=== PATIENT | female | born 1935 | race Caucasian/White ===

== ENCOUNTER → 2016-10-24 | Outpatient (CLI) | payer OTHER ==
[~2016-10-24] MED LIST: CETI10TA84 PO; CHOL1CAP13 PO; ENOX80IN SQ; FERR325T51 PO; FURO-85 PO; LISI-725 PO; METO25TA56 PO; MULT1CAP7 PO; OXYC-57 PO; ROSU20TA PO; VITACAP26 PO
--- NOTE | 2016-10-24 12:21 | DIAGNOSTIC IMAGING REPORT ---
PET/CT CLINICAL HISTORY: Colorectal carcinoma. COMPARISON STUDY: PET/CT dated . CT scan of the chest, abdomen, and pelvis dated 10/04/2016 and 04/26/2016. TECHNIQUE: One hour following the IV administration of 15.99 mCi of F-18 FDG, PET/CT examination was performed from the orbital meatal line through the bony pelvis. Noncontrast CT is performed for the purposes of anatomic correlation and attenuation correction. Note that this does not reflect a diagnostic CT examination. Images were reviewed on a separate [employer] independent workstation. Fused images were obtained. Standard uptake values reported are maximum values within the region of interest expressed an gm/mL. FINDINGS: PET FINDINGS: Head and neck: There is expected physiologic activity within the visualized brain parenchyma at the skull base and the salivary glands. Thorax: Evaluation of the thorax demonstrates expected physiologic myocardial activity. There are 2 mildly enlarged mediastinal lymph nodes in the precarinal region seen on axial image #79. The largest node measures 1.7 x 1.3 cm. These are mildly FDG avid with a maximum SUV of 3.3. These are similar appearance to prior examinations. There is focal left hilar activity seen on image #86 with a maximum SUV of 3.8, and focal right hilar activity seen image #91 with a maximum SUV of 4.0. These likely correspond to mildly enlarged hilar lymph nodes seen on the recent contrast-enhanced CT scan. There are numerous (at least 10) subcentimeter pulmonary nodules. These are similar in size and distribution to the 10/04/[address] scan. The largest nodule measures 9 mm and is located in the right lower lobe seen on image #83. This may demonstrate faint FDG activity but these are too small for PET characterization. Abdomen and pelvis: There is expected activity within the liver, spleen, kidneys, renal collecting system, and bladder. Low-level bowel activity is likely within physical limits. Subtle foci of peritoneal nodularity are again suggested. This is not well visualized on the low-dose images. The CT findings from 10/04/2016 remain concerning for peritoneal metastatic disease. Unenhanced CT images: Visualized brain parenchyma is grossly unremarkable noting age-related involutional change. The bony orbits are grossly intact. Ocular lens implants are noted. The paranasal sinuses and the mastoid air cells are clear. The salivary and thyroid glands are normal as visualized. A left subclavian central venous infusion port is in place. No cervical lymphadenopathy is seen. There is atherosclerotic calcification of the thoracic aorta which is normal in caliber. The heart is enlarged and without pericardial effusion. The coronary arteries are densely calcified. No axillary adenopathy is seen. There is no airspace consolidation or pleural effusion. Dependent atelectasis is observed. See above under PET findings for assessment of pulmonary lesions. A 7 mm cyst is noted in the right lobe of liver. The unenhanced liver, gallbladder, spleen, adrenal glands, and pancreas otherwise grossly unremarkable. The kidneys to insert cortical atrophy and are without hydronephrosis. The abdominal aorta is normal in caliber noting mild to moderate atherosclerotic calcification. There are postoperative changes from sigmoid colon resection with left lower quadrant colostomy and rectal pouch formation. There is a small parastomal hernia. No bowel obstruction is identified. There is mild to moderate colonic fecal retention. No intraperitoneal free air or abdominal ascites is seen. There is no abdominal, pelvic, or inguinal lymphadenopathy identified. The bladder is decompressed. The uterus is atrophic. No adnexal lesion is seen. The skeletal structures are osteopenic. Degenerative change is noted throughout the spine. No lytic or blastic lesions are clearly seen. IMPRESSION: 1. There are numerous (greater than 10) pulmonary nodules. The largest nodule is in the right lower lobe and may demonstrate faint FDG activity; however, these nodules are too small for PET characterization. These nodules have not significantly changed in size or distribution from the 10/04/[address], but do appear to have somewhat increased in size and number from 04/26/2016. These nodules are concerning for metastatic disease. 2. There are prominent and mildly FDG avid mediastinal and hilar lymph nodes. These are unchanged in size from the recent CT examination and are indeterminant but somewhat concerning due to the FDG activity. Attention at follow-up is recommended. 3. Subtle foci of peritoneal nodularity seen by abdominal CT on 10/04/2016 are not well visualized on the PET examination. The CT findings remain concerning for subtle peritoneal metastatic disease. Continued CT follow-up is recommended. 4. There are postoperative changes from sigmoid colon resection and left lower quadrant colostomy. No bowel obstruction is identified. 5. Additional changes as above. Electronically signed by: Maikol Yoon M.D. 10/24/2016 12:19 PM Dictated Date/Time: 10/24/2016 11:56 AM
== END | disposition home or self-care (01) ==
LOC: C.PET 09:47
PROVIDERS: ATTEND Nurse Practitioner Family
DX: C18.9 Malignant neoplasm of colon, unspecified (principal)

== ENCOUNTER → 2017-01-24 | Outpatient (CLI) | payer OTHER ==
[~2017-01-24] MED LIST changes: +OPTIRAY 320 IV PRN
--- NOTE | 2017-01-24 11:17 | DIAGNOSTIC IMAGING REPORT ---
CHEST CT WITH CONTRAST CT DOSE: 853.96 mGy.cm HISTORY: Colon carcinoma COLON CA F/U TECHNIQUE: 10/04/2016 COMPARISON: 10/04/2016 FINDINGS: Slightly progressive, nodularity. Number of nodules is unchanged. Individual nodules have slightly increased from 1 to 2 mm expectantly. Several small mediastinal and/or hilar nodes unchanged in the prior study. Fixed hiatal hernia. IMPRESSION: 1. Slight increase in size of the parenchymal nodules throughout both hemithoraces. 2. There is minimal with increase in maximum diameter of 1 to 2 mm respectively at all sites. 3. No new parenchymal nodules. 4. Stable mediastinal and hilar adenopathy. Electronically signed by: Herbie Covington M.D. 01/24/2017 11:15 AM Dictated Date/Time: 01/24/2017 11:07 AM
--- NOTE | 2017-01-24 11:21 | DIAGNOSTIC IMAGING REPORT ---
CT SCAN OF THE ABDOMEN AND PELVIS WITH IV CONTRAST CLINICAL HISTORY: Colon cancer. COMPARISON STUDY: Abdominal CT dated 10/04/2016. PET/CT dated 10/24/2016. TECHNIQUE: Following the IV administration of 92 cc of Optiray 320, CT scan of the abdomen and pelvis is performed from the lung bases to the proximal femora. Images are reviewed in the axial, sagittal, and coronal planes. IV contrast was administered without complication. Automated dose control exposure was utilized. FINDINGS: Lung bases: The heart is enlarged and without pericardial effusion. There is calcification of the mitral annulus and coronary arteries. Fat-containing Bochdalek hernias are seen at both lung bases. Lower lobe pulmonary nodules are unchanged from 10/04/2016. A left lower lobe nodule seen on image #59 measures 8 mm. A second left lower nodule pulmonary nodule is seen on image #36 and measures 5, and a 3 mm right lower lobe pulmonary nodule is seen on image #55. A 5 mm right lower lobe nodule seen image #4. No new pulmonary nodule is identified at either lung base. The lung bases are otherwise clear noting dependent atelectasis. There is a large hiatal hernia with approximately half of the stomach located in the thoracic cavity. Liver: The contrast-enhanced liver is normal in size, contour, and attenuation. A 10 mm cyst in the inferior right lobe is unchanged. There is no intrahepatic biliary ductal dilatation. The hepatic veins and portal veins are patent. Gallbladder: Unremarkable. Spleen: Normal in size and attenuation. Pancreas: Moderately atrophic. Adrenal glands: Unremarkable. Kidneys: The contrast enhanced kidneys demonstrate cortical atrophy and are without hydronephrosis. The kidneys enhance symmetrically. A circumaortic left renal vein is incidentally noted. Abdominal vasculature: The abdominal aorta is normal in course and caliber noting moderate atherosclerotic calcification. Bowel: There are postoperative changes from partial left colectomy with left lower quadrant colostomy and rectal pouch formation. No bowel obstruction is seen. There is moderate colonic fecal retention. There is a small duodenal diverticulum. The appendix is well-visualized and normal. Peritoneum: There is no intraperitoneal free air or abdominal ascites. Again seen is a focus of peritoneal nodularity identified in the left upper quadrant seen on image #206. This is similar appearance to previous. Foci of nodularity in The ventral left abdominal mesentery seen on images #216 and #248 are also not significantly changed. No progressive peritoneal disease is identified. There is a fat-containing umbilical hernia. A midline surgical scar is noted. Lymphadenopathy: None. Pelvic viscera: The bladder is normal in appearance. The uterus and adnexa are normal as visualized. A sebaceous cyst is again noted in the lower back. Skeletal structures: The skeletal structures are heterogeneously osteopenic. No definite lytic or blastic lesions are seen. L3 and L4 compression deformities are again noted. There is moderate lumbosacral spondylosis. Sclerotic changes are seen involving the sacroiliac joints. IMPRESSION: 1. No significant change in appearance of subtle peritoneal metastatic disease as compared to 10/04/2016. 2. Lower lobe pulmonary nodules do not appear significant changed from previous. See report of chest CT performed concurrently for detailed intrathoracic findings. 3. There are postoperative changes from partial left colectomy with left lower quadrant colostomy and rectal pouch formation. No bowel obstruction is seen. 4. Large hiatal hernia. 5. Cardiomegaly. 6. Additional findings as above. Electronically signed by: Maikol Yoon M.D. 01/24/2017 11:19 AM Dictated Date/Time: 01/24/2017 11:06 AM
== END | disposition home or self-care (01) ==
LOC: C.CTS 10:27
PROVIDERS: ATTEND Internal Medicine Hematology & Oncology
DX: C18.9 Malignant neoplasm of colon, unspecified (principal); R91.8 Other nonspecific abnormal finding of lung field; K44.9 Diaphragmatic hernia without obstruction or gangrene; I51.7 Cardiomegaly; R59.9 Enlarged lymph nodes, unspecified

== ENCOUNTER → 2017-03-14 | Outpatient (CLI) | payer OTHER ==
--- NOTE | 2017-03-14 12:57 | DIAGNOSTIC IMAGING REPORT ---
CT ANGIOGRAM OF THE CHEST CLINICAL HISTORY: Atypical chest pain. Shoulder pain. Shortness of breath. Leg swelling. COMPARISON STUDY: 01/24/2017 TECHNIQUE: Following the IV administration of 76 mL of Optiray-320, CT angiogram of the thorax was performed from the thoracic inlet to the lung bases utilizing the pulmonary embolus protocol. Images are reviewed in the axial, sagittal, and coronal planes. IV contrast was administered without complication. MIP imaging was performed. CT DOSE: 476.72 mGy.cm FINDINGS: There is a moderate hiatal hernia. There are mildly enlarged right paratracheal lymph nodes measuring up to 13 mm in short axis. Hilar nodes are the upper limits of normal in size. There was no evidence of thoracic aortic dilatation. There is a small right lower lobe pulmonary artery filling defect, indicating a small pulmonary embolism. No pleural effusions are visualized. There are dependent atelectatic changes. There are multiple pulmonary nodules. Largest nodule is located in the superior segment the right lower lobe measuring 9 mm. A 5 mm left lower lobe pulmonary nodule is cavitary. The findings are most consistent with metastatic disease. IMPRESSION: 1. Right lower lobe pulmonary artery filling defect indicative of a pulmonary embolism 2. Persistent mediastinal lymphadenopathy 3. Multiple bilateral pulmonary nodules consistent with metastatic disease Electronically signed by: Juan Pablo Houston M.D. 03/14/2017 12:56 PM Dictated Date/Time: 03/14/2017 12:48 PM
== END | disposition home or self-care (01) ==
LOC: C.CTS 12:23
PROVIDERS: ATTEND Internal Medicine Hematology & Oncology
DX: C18.9 Malignant neoplasm of colon, unspecified (principal); R59.1 Generalized enlarged lymph nodes; R91.8 Other nonspecific abnormal finding of lung field; E78.00 Pure hypercholesterolemia, unspecified

== ENCOUNTER → 2017-03-22 | Outpatient (CLI) | payer OTHER ==
[~2017-03-22] MED LIST changes: -OPTIRAY 320 IV PRN
--- NOTE | 2017-03-22 13:58 | DIAGNOSTIC IMAGING REPORT ---
ULTRASOUND VENOUS DOPPLER LWR EXT BILA CLINICAL HISTORY: History of pulmonary embolism. Colon carcinoma. COMPARISON STUDY: No previous studies for comparison. FINDINGS: Real-time and color flow Doppler imaging were performed. Flow was seen within the femoral, popliteal and calf veins with no intraluminal thrombus demonstrated. The saphenous vein is patent. IMPRESSION: No evidence of lower extremity DVT. Electronically signed by: Juan Pablo Houston M.D. 03/22/2017 1:57 PM Dictated Date/Time: 03/22/2017 1:56 PM
== END | disposition home or self-care (01) ==
LOC: C.ULTR 12:49
PROVIDERS: ATTEND Nurse Practitioner Family
DX: C18.9 Malignant neoplasm of colon, unspecified (principal); I26.99 Other pulmonary embolism without acute cor pulmonale

== ENCOUNTER → 2017-03-29 | Outpatient (CLI) | payer OTHER ==
[~2017-03-29] MED LIST changes: +OPTIRAY 320 IV PRN
--- NOTE | 2017-03-29 14:13 | DIAGNOSTIC IMAGING REPORT ---
CHEST CT WITH CONTRAST CT DOSE: 731.58 mGycm HISTORY: COLON CANCER TECHNIQUE: Multiaxial CT images of the chest were performed following the intravenous administration of contrast. COMPARISON: Chest CTA 03/14/2017. Chest CT 01/24/2017. FINDINGS: The central airways are patent. No pleural effusions. No pneumothorax. Small bilateral fat-containing Bochdalek hernias. Large hiatus hernia, unchanged. Bibasilar linear densities consistent with subsegmental atelectasis. There are again noted multiple scattered bilateral pulmonary nodules consistent with metastatic disease. Dominant nodule within the superior segment of the right lower lobe measures 7 mm. These are not significantly changed. Left subclavian Port-A-Cath terminates in the SVC. Mild endplate compression deformities at T2 and T11 remain unchanged. No suspicious lytic or blastic osseous lesions. Stable 1.7 cm right thyroid nodule. Stable prominent precarinal lymph node measuring 12 mm in short axis diameter. No significant hilar lymphadenopathy. The central pulmonary arteries are patent. Normal caliber thoracic aorta. IMPRESSION: 1. No change compared to the prior study. 2. Multiple subcentimeter pulmonary nodules consistent with metastatic disease. 3. Stable prominent precarinal lymph node measuring 12 mm in short axis diameter. 4. Large hiatus hernia. Electronically signed by: Eliot Danielle M.D. 03/29/2017 2:12 PM Dictated Date/Time: 03/29/2017 2:04 PM
--- NOTE | 2017-03-29 14:26 | DIAGNOSTIC IMAGING REPORT ---
CT ABD/PELVIS IV AND ORAL CONT CLINICAL HISTORY: COLON CANCER LEFT LOWER QUADRANT PAIN COMPARISON STUDY: 01/24/2017 TECHNIQUE: Following the IV administration of 93 mL of Optiray-320, CT scan of the abdomen and pelvis was performed from the lung bases to the proximal femurs. Images are reviewed in the axial, sagittal, and coronal planes. IV contrast was administered without complication. CT DOSE: FINDINGS: Lower chest: There are bibasal atelectatic changes. There is a moderate hiatal hernia. There are fat-containing Bochdalek hernias. There are solid left lower lobe pulmonary nodules measuring 7 mm and 5 mm respectively. There is a 3 mm right lower lobe pulmonary nodule. Liver: There is hepatic steatosis. There is a stable 9 mm hypodensity within the right lobe, likely representing a cyst. Gallbladder: Unremarkable. Spleen: Normal in size and attenuation. Pancreas: Unremarkable. Adrenal glands: Unremarkable. Kidneys: There is symmetric renal cortical enhancement. The kidneys are normal in size without hydronephrosis. Bowel: There are no transition zones indicate bowel obstruction. There is a left lower quadrant ostomy with a parastomal hernia. There is a tiny fat-containing ventral hernia. There is a fat-containing umbilical hernia. Peritoneum: There is no intraperitoneal free air or abdominal ascites. The recently identified peritoneal nodules are not definitively identified on today's study. Vasculature: The abdominal aorta is normal in course and caliber. Adenopathy: None. Pelvic viscera: The bladder, and pelvic viscera are unremarkable. Skeletal structures: No destructive lesions are visualized. There are few tiny sclerotic lesions likely representing bone islands. There are L3 and L4 compression deformities. IMPRESSION: 1. The previously identified peritoneal nodules are not clearly identified on today's study 2. 1 mm interval decrease in size of the 2 left lower lobe pulmonary nodules 3. Postsurgical changes of a partial left colectomy with left lower quadrant ostomy. There is a parastomal hernia 4. Hiatal hernia Electronically signed by: Juan Pablo Houston M.D. 03/29/2017 2:25 PM Dictated Date/Time: 03/29/2017 2:15 PM
== END | disposition home or self-care (01) ==
LOC: C.CTS 13:05
PROVIDERS: ATTEND Internal Medicine Hematology & Oncology
DX: C18.9 Malignant neoplasm of colon, unspecified (principal); R91.8 Other nonspecific abnormal finding of lung field; K44.9 Diaphragmatic hernia without obstruction or gangrene

== ENCOUNTER → 2017-06-18 | Outpatient (CLI) | payer OTHER ==
[~2017-06-18] MED LIST changes: -OPTIRAY 320 IV PRN
--- NOTE | 2017-06-18 13:28 | DIAGNOSTIC IMAGING REPORT ---
(CHEST) THORAX WITH CLINICAL HISTORY: 82 years-old Female presenting with ABNORMAL WEIGHT LOSS, history of colon cancer, abnormal weight loss. TECHNIQUE: Multidetector CT imaging of the chest was performed without the use of intravenous contrast. IV contrast: 93 mL of Optiray 320. A dose lowering technique was used consistent with the principles of ALARA (as low as reasonably achievable). COMPARISON: 03/29/2017. CT DOSE (mGy.cm): The estimated cumulative dose is 1011.16 mGycm. 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 On soft tissue windows, normal thyroid and thoracic inlet. Enlarged mediastinal lymph nodes in the precarinal and prevascular regions, measuring up to 11 mm in the short axis (for example, series 4 image 98). Normal aorta. Multichamber enlargement of the heart. No pericardial or pleural effusion. Bilateral fat-containing Bochdalek hernias. Moderate to large hiatal hernia. The gastroesophageal junction is above the diaphragm. Mild biliary ductal prominence. On lung windows, numerous bilateral solid pulmonary nodules bilaterally, the largest on the right measuring 10 mm and on the left measuring 9 mm. Previously these measured 7 mm on the right and 7 mm on the left. All these pulmonary nodules demonstrate slight interval growth. Airways patent. On bone windows, degenerative changes of the spine. IMPRESSION: 1. Slight interval growth of numerous bilateral solid pulmonary nodules, likely indicating progression of disease. 2. Persistently enlarged mediastinal lymphadenopathy, also concerning for metastatic disease. This is not significantly changed from prior. Electronically signed by: Yobany Soto M.D. 06/18/2017 1:27 PM Dictated Date/Time: 06/18/2017 1:18 PM
--- NOTE | 2017-06-18 13:45 | DIAGNOSTIC IMAGING REPORT ---
CT ABD/PELVIS IV AND ORAL CONT CLINICAL HISTORY: Colon carcinoma. Abnormal weight loss. COMPARISON STUDY: 03/29/2017 TECHNIQUE: Following the IV administration of 93 mL of Optiray-320, CT scan of the abdomen and pelvis was performed from the lung bases to the proximal femurs. Images are reviewed in the axial, sagittal, and coronal planes. IV contrast was administered without complication. A dose lowering technique was utilized adhering to the principles of ALARA. CT DOSE: FINDINGS: Lower chest: There are bibasal atelectatic changes. There is slight interval enlargement in the size of left lower lobe pulmonary nodule which currently measures 9 mm. There is slight enlargement in a 4 mm right lower lobe pulmonary nodule. There is a hiatal hernia. Liver: There is a stable 1 cm hypodensity within the right hepatic lobe likely representing a cyst. Gallbladder: Unremarkable. Spleen: Normal in size and attenuation. Pancreas: No focal masses are visualized. There is stable mild pancreatic ductal dilatation. Adrenal glands: Unremarkable. Kidneys: There is symmetric renal cortical enhancement. The kidneys are normal in size without hydronephrosis. Bowel: There are no transition zones indicate bowel obstruction. There is a left lower quadrant ostomy with a parastomal hernia. There are postsurgical changes of a left hemicolectomy. Peritoneum: There is no intraperitoneal free air or abdominal ascites. There are tiny fat-containing ventral hernias. There is small fat-containing umbilical hernia. Vasculature: The abdominal aorta is normal in course and caliber. Adenopathy: None. Pelvic viscera: The bladder, and pelvic viscera are unremarkable. Skeletal structures: There are chronic L3 and L4 compression deformities. There are a few scattered sclerotic lesions likely representing bone islands. Scattered subcutaneous nodules, while nonspecific likely related to prior injection sites. IMPRESSION: 1. Slight enlargement in the size of the bilateral pulmonary nodules, suspicious for progressive metastatic disease 2. Postsurgical changes of a partial left colectomy with a left lower quadrant ostomy and parastomal hernia 3. No evidence of bowel obstruction. No evidence of free air 4. Stable mild pancreatic ductal dilatation Electronically signed by: Juan Pablo Houston M.D. 06/18/2017 1:43 PM Dictated Date/Time: 06/18/2017 1:36 PM
== END | disposition home or self-care (01) ==
LOC: C.CTS 12:35
PROVIDERS: ATTEND Nurse Practitioner Family
DX: C18.9 Malignant neoplasm of colon, unspecified (principal); R63.4 Abnormal weight loss; R91.8 Other nonspecific abnormal finding of lung field; Z90.49 Acquired absence of other specified parts of digestive tract; R59.0 Localized enlarged lymph nodes

== ENCOUNTER → 2017-08-14 | Outpatient (CLI) | payer OTHER ==
[~2017-08-14] MED LIST changes: +OPTIRAY 320 IV PRN
--- NOTE | 2017-08-14 15:31 | DIAGNOSTIC IMAGING REPORT ---
(CHEST) THORAX WITH CT DOSE: 1080.50 mGycm HISTORY: Pulmonary nodules COLON CA TECHNIQUE: Multiaxial CT images of the chest were performed following the intravenous administration of contrast. A dose lowering technique was utilized adhering to the principles of ALARA. COMPARISON: 06/18/2007 FINDINGS: Several pulmonary nodules are again noted. A right upper lobe nodule transaxial image 11 currently measures 6 mm increased from 4 mm. A 2 mm nodule peripheral aspect left upper lobe transaxial image 11 is unchanged. A new nodule right upper lobe image 13 is present measuring 3 mm. Similar increase in size as well as number of a parenchymal nodules are identified throughout the mid to lower lung regions bilaterally. Increase in size generally is in the order of 2 mm respectively at each nodular site. There is a stable hiatal herniaseveral. Mediastinal and/or hilar nodes have remains similar. There is no significant progression terms of size or change in configuration. Degenerative changes of the osseous structures is noted throughout. IMPRESSION: 1. Mildly progressive metastatic pulmonary nodules throughout both lungs 2. These in general are moderately increased in number as well as size again consistent with metastatic change. 3. Mediastinal adenopathy stable. 4. Unchanging hiatal hernia. The above report was generated using voice recognition software. It may contain grammatical, syntax or spelling errors. Electronically signed by: Herbie Covington M.D. 08/14/2017 3:29 PM Dictated Date/Time: 08/14/2017 3:21 PM
--- NOTE | 2017-08-14 15:39 | DIAGNOSTIC IMAGING REPORT ---
ABDOMEN AND PELVIS CT WITH IV AND ORAL CONTRAST HISTORY: Follow-up study in a patient with colon cancer COLON CA. Prior partial left colectomy with left lower quadrant ostomy TECHNIQUE: Multiaxial CT images of the abdomen and pelvis were performed following the use of intravenous and oral contrast. A dose lowering technique was utilized adhering to the principles of ALARA. COMPARISON STUDY: CT 06/18/2017. FINDINGS: There are several solid noncalcified nodules of the lung bases, largest of which measures 9 mm within the posterior basal segment left lower lobe, image 41 of series 6 which slightly enlarged measuring 8 mm. 5 mm nodule of the right lower lobe on image 33 series 6 previously measured 4 mm 7 mm nodule of the left lower lobe image 17 series 6 previously measured 5 mm. No pneumoperitoneum identified. Imaged inferior cardiac chambers are mildly enlarged. Coronary arterial calcifications are noted. Small bilateral Bochdalek hernias. 8 mm low attenuating lesion of the inferior right hepatic lobe is unchanged from prior study suggesting cyst. No evidence of hepatic metastasis. The spleen, and right adrenal gland are unremarkable. There is mild nodularity of the left adrenal gland which is unchanged suggesting hyperplasia. Moderate diffuse pancreatic atrophy with mild pancreatic ductal dilation is again seen, pancreatic duct measuring 4 mm. No obstructing stone or mass. Scattered subcentimeter low attenuating lesions of the kidneys are too small to characterize however suggest cysts. No renal calculi or hydronephrosis. Urinary bladder is partially collapsed. Uterus appears atrophic. No adnexal mass lesions identified. There is moderate atherosclerotic plaquing of the abdominal aorta. Moderate sized hiatal hernia with partially intrathoracic stomach noted. There is no bowel obstruction identified. Postsurgical changes compatible with partial left colectomy with left lower quadrant colostomy again noted. Small parastomal hernia is unchanged with trace fluid within the hernia sac. There is nodularity of the omentum within the left upper and left lower quadrant as seen on image 195 series 6 which appears new from the 06/18/2017 study. Small perineural hernia, diastases 1.3 cm which is fat filled. There is increased lobular thickening of the lower midline rectus sheath, 3.2 x 1.5 cm on image 359 series 6. Mild nodularity of the peritoneum superior to this as seen on image 323 series 6 is again noted suggesting postsurgical changes. Injection sites about the lower anterior abdominal wall noted. No suspicious lytic or blastic bony lesions are identified. Compression deformities at L3 and L4 are noted, unchanged. IMPRESSION: 1. Minimal enlargement of pulmonary nodules of the lung bases of a few millimeters as above are suspicious for progression of metastatic disease. 2. 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 3. Postsurgical changes compatible with prior partial left colectomy with left lower quadrant ostomy and parastomal hernia again noted. No bowel obstruction. 4. Moderate hiatal hernia with partially intrathoracic stomach. Electronically signed by: Mehran Bryant M.D. 08/14/2017 3:38 PM Dictated Date/Time: 08/14/2017 3:22 PM
== END | disposition home or self-care (01) ==
LOC: C.CTS 14:19
PROVIDERS: ATTEND Nurse Practitioner Family
DX: C18.9 Malignant neoplasm of colon, unspecified (principal); C78.00 Secondary malignant neoplasm of unspecified lung

== ENCOUNTER → 2017-12-17 | Outpatient (CLI) | payer OTHER ==
--- NOTE | 2017-12-17 12:10 | DIAGNOSTIC IMAGING REPORT ---
(CHEST) THORAX WITH CT DOSE: 811.58 mGycm HISTORY: Lung nodules COLON CA TECHNIQUE: Multiaxial CT images of the chest were performed following the intravenous administration of contrast. A dose lowering technique was utilized adhering to the principles of ALARA. COMPARISON: 08/14/2017 FINDINGS: Stable atherosclerotic change thoracic aorta. Several small mediastinal nodes unchanged from the prior study. Slight progression of a pretracheal node from 1.0 21.4 cm. Stable slight progression of parenchymal nodularity throughout both hemithoraces compared to the prior study. A left lower lobe nodule appears to measure to 7 mm is now 8 mm. Several additional basilar nodules have increased approximately 1 mm in size. A dominant nodule superior segment right lower lobe. These measure 9 mm has increased to 10 mm. Additional nodules in the upper lung regions have remains stable and/or slightly increased in maximum diameter all approximately 1 mm in maximum dimension. Stable degenerative changes of the osseous structures. Fixed lateral hernia unchanged. Subcarinal nodes IMPRESSION: 1. Slightly progressive pulmonary nodularity with the nodules previously described increasing overall x 1 mm in maximum dimensions 2. Slight increase in mediastinal adenopathy again with an increase in maximum dimension of no more than several millimeters. The above report was generated using voice recognition software. It may contain grammatical, syntax or spelling errors. Electronically signed by: Herbie Covington M.D. 12/17/2017 12:09 PM Dictated Date/Time: 12/17/2017 12:03 PM
--- NOTE | 2017-12-17 12:33 | DIAGNOSTIC IMAGING REPORT ---
CT SCAN OF THE ABDOMEN AND PELVIS WITH IV CONTRAST CLINICAL HISTORY: Colon cancer. COMPARISON STUDY: Prior abdominal CT scans, most recently dated 08/14/2017. TECHNIQUE: Following the IV administration of 93 cc of Optiray 320, CT scan of the abdomen and pelvis is performed from the lung bases to the proximal femora. Images are reviewed in the axial, sagittal, and coronal planes. IV contrast was administered without complication. A dose lowering protocol was utilized adhering to the principles of ALARA. FINDINGS: Lung bases: The heart is enlarged and without pericardial effusion. There is calcification of the mitral annulus and coronary arteries. Fat-containing Bochdalek hernias are seen at both lung bases. Lower lobe pulmonary nodules are unchanged from 08/14/2017. Lower lobe pulmonary nodules have modestly increased in size from 08/14/2017. The left lower lobe nodule on image #48 measures 11 mm, in the left lower lobe nodule on image #23 measures 9 mm. A right lower lobe nodule on image #41 measures 6 mm. No airspace consolidation or pleural effusion is identified. Foci of linear atelectasis are observed. There is a large hiatal hernia with approximately half of the stomach located in the thoracic cavity. Liver: The contrast-enhanced liver is normal in size, contour, and attenuation. A 10 mm cyst in the inferior right lobe is unchanged. There is no intrahepatic biliary ductal dilatation. The hepatic veins and portal veins are patent. Gallbladder: Unremarkable. Spleen: Normal in size and attenuation. Pancreas: Moderately atrophic. Adrenal glands: Unremarkable. Kidneys: The contrast enhanced kidneys demonstrate cortical atrophy and are without hydronephrosis. The kidneys enhance symmetrically. Abdominal vasculature: The abdominal aorta is normal in course and caliber noting moderate atherosclerotic calcification. Bowel: There are postoperative changes from partial left-sided colon resection with left lower quadrant colostomy and rectal pouch formation. A parastomal hernia contains a nonobstructed segment of the transverse colon. Moderate colonic fecal retention is observed. No bowel obstruction is identified. There is a small duodenal diverticulum. Numerous small bowel diverticula are observed. The appendix is well-visualized and normal. Peritoneum: There is no intraperitoneal free air or abdominal ascites. An enlarging peritoneal implant is identified along the ventral left pelvic wall. This is seen on image #359 and measures 2.1 x 4.2 cm. Smaller subtle foci of peritoneal nodularity appear decreased in size/less confluent from previous. A tiny residual focus in the left upper quadrant as seen on image #201. A small focus within the peristomal hernia is seen on image #234. No new peritoneal lesion is identified. There is a fat-containing umbilical hernia. A midline surgical scar is noted. Lymphadenopathy: None. Pelvic viscera: The bladder is normal in appearance. The uterus and adnexa are normal as visualized. A sebaceous cyst is again noted in the lower back. Skeletal structures: The skeletal structures are heterogeneously osteopenic. No definite lytic or blastic lesions are seen. A mild compression deformity is seen in the body of T11. Moderate compression deformities are seen involving L3 and L4. There is moderate lumbosacral spondylosis. Sclerotic changes are seen involving the sacroiliac joints. IMPRESSION: 1. Modest progression of metastatic disease as compared to 08/14/2017. 2. Lower lobe pulmonary nodules have modestly increased in size from previous. 3. There are is an enlarging peritoneal implant identified in the ventral pelvis is compared to previous. Smaller foci of peritoneal nodularity appear less confluent from previous. 4. Again seen postoperative changes from left colon resection with left lower quadrant colostomy and rectal pouch formation. 5. A parastomal hernia containing a segment of the transverse colon is new from previous. No bowel obstruction is seen. 6. Large hiatal hernia. 7. Cardiomegaly. 8. Additional findings as above. Electronically signed by: Maikol Yoon M.D. 12/17/2017 12:31 PM Dictated Date/Time: 12/17/2017 12:18 PM
== END | disposition home or self-care (01) ==
LOC: C.CTS 11:19
PROVIDERS: ATTEND Nurse Practitioner Family
DX: C18.9 Malignant neoplasm of colon, unspecified (principal); R91.8 Other nonspecific abnormal finding of lung field; Z90.49 Acquired absence of other specified parts of digestive tract; Z93.3 Colostomy status; K43.5 Parastomal hernia without obstruction or gangrene; K44.9 Diaphragmatic hernia without obstruction or gangrene; I51.7 Cardiomegaly; R59.0 Localized enlarged lymph nodes

== ENCOUNTER → 2018-02-17 | Outpatient (CLI) | payer OTHER ==
[~2018-02-17] MED LIST changes: -OPTIRAY 320 IV PRN
== END | disposition home or self-care (01) ==
LOC: C.LABCCP 11:59
PROVIDERS: ATTEND Pathology Blood Banking & Transfusion Medicine
DX: Z79.01 Long term (current) use of anticoagulants (principal); Z51.81 Encounter for therapeutic drug level monitoring

== ENCOUNTER → 2018-04-25 | Outpatient (CLI) | payer OTHER ==
[2018-04-25 14:49] LABS: ALT/SGPT 14 U/L (12-78); AST/SGOT 19 U/L (15-37); BLOOD UREA NITROGEN 13 mg/dl (7-18); CARBON DIOXIDE 28 mmol/L (21-32); CREATININE 0.75 mg/dl (0.60-1.20); GLUCOSE 87 mg/dl (70-99); POTASSIUM 4.3 mmol/L (3.5-5.1); SODIUM 142 mmol/L (136-145)
[2018-04-25 14:51] LABS: ALKALINE PHOSPHATASE 77 U/L (45-117); TOTAL PROTEIN 5.9 gm/dl (6.4-8.2)
[2018-04-25 14:56] LABS: BASO % 0.5 %; BASO ABS # 0.02 K/uL (0-0.2); EOS % 0.7 %; EOS ABS # 0.03 K/uL (0-0.5); HEMATOCRIT 27.9 % (37-47); HEMOGLOBIN 8.7 g/dL (12.0-16.0); LYMPH % 36.7 %; LYMPH ABS # 1.57 K/uL (1.2-3.4); MEAN CELL VOLUME 99.6 fL (80-100); MEAN CORPUSCULAR HEMOGLOBIN 31.1 pg (25-34); MEAN CORPUSCULAR HGB CONC 31.2 g/dl (32-36); MEAN PLATELET VOLUME 11.2 fL (7.4-10.4); MONO % 7.2 %; MONO ABS # 0.31 K/uL (0.11-0.59); NEUT % 54.9 %; NEUT ABS # 2.35 K/uL (1.4-6.5); PLATELET COUNT 121 K/uL (130-400); RED CELL DISTRIBUTION WIDTH CV 15.4 % (11.5-14.5); RED CELL DISTRIBUTION WIDTH SD 56.4 fL (36.4-46.3); WHITE BLOOD COUNT 4.28 K/uL (4.8-10.8)
== END | disposition home or self-care (01) ==
LOC: C.LABSPEC 14:16
PROVIDERS: ATTEND Internal Medicine Hematology & Oncology
DX: C18.9 Malignant neoplasm of colon, unspecified (principal)

== ENCOUNTER → 2018-05-09 | Outpatient (CLI) | payer OTHER ==
[2018-05-09 11:40] LABS: BASO % 0.6 %; BASO ABS # 0.02 K/uL (0-0.2); EOS % 2.4 %; EOS ABS # 0.08 K/uL (0-0.5); HEMATOCRIT 28.9 % (37-47); LYMPH % 40.6 %; LYMPH ABS # 1.34 K/uL (1.2-3.4); MEAN CORPUSCULAR HEMOGLOBIN 30.8 pg (25-34); MEAN CORPUSCULAR HGB CONC 31.1 g/dl (32-36); MEAN PLATELET VOLUME 10.5 fL (7.4-10.4); MONO % 5.8 %; MONO ABS # 0.19 K/uL (0.11-0.59); NEUT % 50.6 %; NEUT ABS # 1.67 K/uL (1.4-6.5); PLATELET COUNT 120 K/uL (130-400); RED CELL DISTRIBUTION WIDTH CV 14.4 % (11.5-14.5); RED CELL DISTRIBUTION WIDTH SD 51.5 fL (36.4-46.3)
[2018-05-09 12:04] LABS: ALBUMIN 3.1 gm/dl (3.4-5.0); ALKALINE PHOSPHATASE 74 U/L (45-117); ALT/SGPT 16 U/L (12-78); AST/SGOT 24 U/L (15-37); BLOOD UREA NITROGEN 10 mg/dl (7-18); CALCIUM 8.8 mg/dl (8.5-10.1); CARBON DIOXIDE 26 mmol/L (21-32); CREATININE 0.75 mg/dl (0.60-1.20); GLUCOSE 76 mg/dl (70-99); POTASSIUM 4.5 mmol/L (3.5-5.1); SODIUM 139 mmol/L (136-145); TOTAL PROTEIN 5.9 gm/dl (6.4-8.2)
== END | disposition home or self-care (01) ==
LOC: C.LABSPEC 11:28
PROVIDERS: ATTEND Internal Medicine Hematology & Oncology
DX: C18.9 Malignant neoplasm of colon, unspecified (principal)

== ENCOUNTER → 2018-05-23 | Outpatient (CLI) | payer OTHER ==
[2018-05-23 14:22] LABS: HEMATOCRIT 30.9 % (37-47); HEMOGLOBIN 9.8 g/dL (12.0-16.0); MEAN CELL VOLUME 96.9 fL (80-100); MEAN CORPUSCULAR HEMOGLOBIN 30.7 pg (25-34); MEAN CORPUSCULAR HGB CONC 31.7 g/dl (32-36); MEAN PLATELET VOLUME 10.1 fL (7.4-10.4); PLATELET COUNT 136 K/uL (130-400); RED CELL DISTRIBUTION WIDTH CV 13.8 % (11.5-14.5); RED CELL DISTRIBUTION WIDTH SD 48.6 fL (36.4-46.3); WHITE BLOOD COUNT 2.73 K/uL (4.8-10.8)
[2018-05-23 14:31] LABS: ALBUMIN 3.2 gm/dl (3.4-5.0); ALT/SGPT 18 U/L (12-78); AST/SGOT 19 U/L (15-37); BLOOD UREA NITROGEN 11 mg/dl (7-18); CARBON DIOXIDE 26 mmol/L (21-32); CREATININE 0.76 mg/dl (0.60-1.20); GLUCOSE 88 mg/dl (70-99); POTASSIUM 4.6 mmol/L (3.5-5.1); SODIUM 139 mmol/L (136-145)
[2018-05-23 14:41] LABS: ALKALINE PHOSPHATASE 71 U/L (45-117); TOTAL PROTEIN 6.2 gm/dl (6.4-8.2)
[2018-05-23 14:56] LABS: BASO % 0.4 %; BASO ABS # 0.01 K/uL (0-0.2); EOS % 1.1 %; EOS ABS # 0.03 K/uL (0-0.5); LYMPH % 57.1 %; LYMPH ABS # 1.56 K/uL (1.2-3.4); MONO % 4.4 %; MONO ABS # 0.12 K/uL (0.11-0.59); NEUT ABS # 1.01 K/uL (1.4-6.5)
== END | disposition home or self-care (01) ==
LOC: C.LABSPEC 13:56
PROVIDERS: ATTEND Internal Medicine Hematology & Oncology
DX: C18.9 Malignant neoplasm of colon, unspecified (principal)